=== PATIENT | male | born 1935 | race Caucasian/White ===

== ENCOUNTER 2019-08-02 03:41 | Inpatient (IN) | payer MEDICARE ==
[~2019-08-02] VITALS: Ht 175.3 cm; Wt 83.9 kg
[~2019-08-02 03:41] MED LIST: **INCOMPLETE MED REC; ASPI81CH PO; BREO ELLIPTA 11 EACH INH; DOCU100 PO; GENPREOPSU; HYDACE10B PO; LISI5 PO; METO50 PO; NAPR500 PO; PRED FORTE5 ML LEFTEYE; Simvastatin20 MG PO; TIOT18 INH; Tylenol325 MG PO; VITAMIN B-125000 MC2 PO; VITAMIN C500 MG PO; VITAMIN D35000 UNIT PO; WARF5 PO; [UNRECOGNIZED DRUG - OTHER]
[2019-08-02 04:28] LABS: BASOPHILS ABSOLUTE AUTO 0.05 K/mm3 (0.00-0.23); BASOPHILS PERCENT AUTO 1 % (0-2); EOSINOPHILS ABSOLUTE AUTO 0.06 K/mm3 (0.00-0.68); EOSINOPHILS PERCENT AUTO 2 % (0-6); Hematocrit 40.1 % (37.0-53.0); Hemoglobin 13.3 g/dL (13.5-17.5); IMMATURE GRAN ABSOLUTE AUTO 0.01 K/mm3 (0.00-0.10); IMMATURE GRAN PERCENT AUTO 0 % (0-1); LYMPHOCYTES ABSOLUTE AUTO 0.38 K/mm3 (0.84-5.20); LYMPHOCYTES PERCENT AUTO 9 % (21-46); MONOCYTES ABSOLUTE AUTO 0.61 K/mm3 (0.16-1.47); MONOCYTES PERCENT AUTO 15 % (4-13); Mean Corpuscular HGB 31.7 pg (26.0-34.0); Mean Corpuscular HGB Conc 33.2 g/dL (31.5-36.5); Mean Corpuscular Volume 96 fL (80-100); Mean Platelet Volume 9.8 fL (9.1-12.4); NEUTROPHILS ABSOLUTE AUTO 2.97 K/mm3 (1.96-9.15); NEUTROPHILS PERCENT AUTO 73 % (41-73); Platelet Count 193 K/mm3 (150-400); RDW Coefficient Variation 14.4 % (11.7-14.2); RDW Standard Deviation 50.4 fL (35.1-46.3); Red Blood Cell Count 4.19 M/mm3 (4.30-5.90); White Blood Cell Count 4.08 K/mm3 (4.00-11.30)
[2019-08-02 04:43] LABS: International Normalized Ratio 2.45; Prothrombin Time Results 23.9 Sec (9.7-11.5)
[2019-08-02 04:50] LABS: Alanine Aminotransfer (ALT/SGP 26 U/L (12-78); Albumin, Blood 3.4 g/dL (3.4-5.0); Albumin/Globulin Ratio 0.8 (0.8-1.8); Alk Phos 88 U/L (50-136); Anion Gap 7 mmol/L (6-16); Aspartate Aminotrans (AST/SGOT 28 U/L (12-37); Bilirubin, Total 1.1 mg/dL (0.1-1.0); Blood Urea Nitrogen 13 mg/dL (8-24); Bun/Creatinine Ratio 17.7 (12.0-20.0); CO2, Blood 28 mmol/L (21-32); Calcium, Blood 8.9 mg/dL (8.5-10.1); Chloride, Blood 100 mmol/L (98-108); Creatinine, Blood 0.73 mg/dL (0.60-1.20); Globulin, Blood 4.3 g/dL (2.2-4.0); Glomerular Filtration Rate >60 (60-); Glucose, Blood 85 mg/dL (70-99); Magnesium, Blood 1.9 mg/dL (1.6-2.4); Potassium, Blood 3.7 mmol/L (3.5-5.5); Sodium, Blood 135 mmol/L (136-145); Total Protein, Blood 7.7 g/dL (6.4-8.2); Troponin I <0.015 ng/mL (0.000-0.040)
[2019-08-02 06:40] LABS: Source, Urine Clean Catch
[2019-08-02 06:42] LABS: Bilirubin, Urine Neg (Neg); Blood, Urine Neg (Neg); Glucose Qualitative, Urine Neg (Neg); Ketones, Urine Neg (Neg); Leukocyte Esterase, Urine Neg (Neg); Nitrite, Urine Neg (Neg); Protein, Urine Neg (Neg); Urobilinogen, Urine 1+ (Normal)
[2019-08-02 06:52] LABS: Appearance, Urine Clear (Clear); Color, Urine Yellow (P-Yellow)
--- NOTE | 2019-08-02 11:36 | NUR ---
PARTIAL ECHO COMPLETE
[2019-08-02] MEDS ORDERED: FURO20 PO (12:22)
--- NOTE | 2019-08-02 17:28 | NUR ---
SUMMARY PT ADMITTED FROM THE ER, ABLE TO STAND AND TRANSFER FROM THE GURNEY TO THE BED, PT SOB WITH ANY ACTIVITY, PT ALERT AND ORIENTED, PLEASANT AND COOPERATIVE, ORIENTED PT TO THE ROOM AND CALL SYSTEM, PT WAS ABLE TO WORK WITH PT/OT UP IN THE HALLS TODAY, PT DYSPNEIC BUT RECOVERS QUICKLY, FAMILY AT THE BEDSIDE FOR MOST OF THE DAY, PT MED PER EMAR FOR HTN, WILL CONT TO MONITOR
--- NOTE | 2019-08-02 22:21 | NUR ---
Home medications. Pt brought all his home meds in from home out in pill box and unable to identify what they are. Pt states his insurance will bill him for all hospital meds he is given so wants to use his own. Pt took his own home meds before I realized this was what he was doing so I have no way of verifying what he actually took. Pt instructed to have his bring in his medications in the morning so we can verify his meds. Pt was not happy with this but did call his with these instructions.
--- NOTE | 2019-08-03 04:09 | NUR ---
shift summary; Pt slept most of shift. No c/o discomfort or respiratory distress. Pt on telemetry - AFIB 85 per telesales professional. See previous note about medications. to come in this morning with his home medications. Pt wants to take his own meds. VSS.
[2019-08-03 04:44] LABS: Hemoglobin 13.4 g/dL (13.5-17.5); Mean Corpuscular HGB 32.1 pg (26.0-34.0); Mean Corpuscular HGB Conc 33.5 g/dL (31.5-36.5); Mean Corpuscular Volume 96 fL (80-100); Mean Platelet Volume 9.8 fL (9.1-12.4); Platelet Count 184 K/mm3 (150-400); RDW Coefficient Variation 14.6 % (11.7-14.2); RDW Standard Deviation 51.8 fL (35.1-46.3); Red Blood Cell Count 4.18 M/mm3 (4.30-5.90)
[2019-08-03 05:07] LABS: Anion Gap 7 mmol/L (6-16); Blood Urea Nitrogen 14 mg/dL (8-24); Bun/Creatinine Ratio 16.4 (12.0-20.0); CO2, Blood 31 mmol/L (21-32); Calcium, Blood 8.7 mg/dL (8.5-10.1); Chloride, Blood 100 mmol/L (98-108); Creatinine, Blood 0.85 mg/dL (0.60-1.20); Glomerular Filtration Rate >60 (60-); Glucose, Blood 93 mg/dL (70-99); Potassium, Blood 3.6 mmol/L (3.5-5.5); Sodium, Blood 138 mmol/L (136-145)
[2019-08-03 05:14] LABS: International Normalized Ratio 2.08; Prothrombin Time Results 20.6 Sec (9.7-11.5)
--- NOTE | 2019-08-03 07:05 | NUR ---
ASSUMED CARE OF PT- RECIEVED REPORT FROM NIGHT RN ELTON. PER REPORT PT ALERT AND ORIENTED AND CALLS APPROPRIATELY. PT SLEEPING AT THE TIME OF SHIFT CHANGE. PER REPORT WHEN NIGHT RN WENT TO GIVE EVENING MEDS, PT INFORMED HER HE ALREADY TOOK HIS MEDICATIONS. PT MEDS WERE SET UP IN A PILL COMMUNITY RECREATION PROGRAMMER BY HIS SPOUSE, NO PERSCRIPTION BOTTLES. MED COMMUNITY RECREATION PROGRAMMER PLACED IN THE LOCKED DRAWER. PT DECLINING TO BE GIVEN MEDICATIONS HERE AT THE HOSPITAL, STATES HE WILL TAKE ALL OF HIS OWN MEDS. SPOUSE IS TO BRING IN THE PILL BOTTLES FOR VERIFICATION. PT ADMITTED FOR SOB WITH DIMMINISHED LOWER LOBE SOUNDS, PT DID CONSENT TO RECIEVE IV LASIX. NIGHT RN.
--- NOTE | 2019-08-03 11:24 | NUR ---
BARIATRIC PHYSICIAN- PT SITTING AT EOB TALKING TO FAMILY. PER FAMILY STATEMENT HE TIPPED OVER AND STOPPED TALKING AND WOULDN'T ANSWER THEM. PT SPOUSE BECAME CONCERNED AND CALLED CHIEF SERVICE DISPATCHER TO ASSIST. CHIEF SERVICE DISPATCHER FABI CALLED SUPERVISOR BEATER ROOM CASSIE AND PT VITALS WERE BEGAN. PRIMARY RN ENTERED, PT LAYING IN BED HOB ELEVATED BREATHING IRRADIC, PT UNRESPONSIVE, EYES OPEN. VITALS 67/48 PULSE AFIB IN THE 70'S PER TELE, CALLED BARIATRIC PHYSICIAN. PULLED NS ON OVERRIDE TO START FLUID BOLUS, DR MARCUS ORDERED 500ML BOLUS. HOB LAID FLAT AND FEET ELEVATED. PT PLACED ON 2L O2 NC. AFTER 150ML OF BOLUS PT SEEMED TO WAKE. PT WAS ORDERED IN HOUSE TRANSFER TO ICU FOR COLSER MONITORING WITH THE PT FLUID BALANCE.
--- NOTE | 2019-08-03 12:31 | NUR ---
PT TRANSFERRED: PT TRANSFERRED TO ROOM ICU 6 AFTER RAPID RESPONSE. ICU ESCALATOR MECHANIC STATES PT'S BP WAS DECREASED. FLUID BOLUS OF 500MLS STARTED DURING RAPID. PT IN UNIT NOW WITH BOLUS COMPLETE, SL. AFIB IN 70S. PT DENIES DIZZINESS OR DISCOMFORT AT THIS TIME WHILE LAYING IN BED. FAMILY AT BEDSIDE. VSS
--- NOTE | 2019-08-03 15:22 | NUR ---
CALL TO DR MARCUS BECAUSE PT WAS BECOMING HYPOTENSIVE AGAIN. DR MARCUS SUGGESTED TO INFORM CARDIOLOGY. CALL TO DR WORLEY WITH ORDERS RECIEVED TO GIVE REMAINING 500ML BOLUS AND CHANGES TO COREG DOSING.
--- NOTE | 2019-08-03 17:30 | NUR ---
SHIFT SUMMARY: PT SITTING UPRIGHT IN BED ON ROOM AIR, LUNG SOUNDS DIMINISHED IN BASES BP ELEVATED AFTER SECOND BOLUS. FAMILY AT BEDSIDE MAJORITY OF SHIFT. NO ACUTE NEEDS OR CONCERNS
--- NOTE | 2019-08-03 19:10 | NUR ---
ASSUME CARE; REPORT RECIEVED FROM OFFGOING MARCY MATTHEWS. MONITOR INTACT SHOWING A FIB. HEART RATE 60'S-70'S. DENIES DISCOMFORT. LUNG SOUNDS CLEAR. RESPIRATIONS REGULAR AND EASY AT REST ON ROOM AIR. SPO2 ABOVE 93%. ABDOMEN SOFT WITH BOWEL SOUNDS FOUR QUADS. SKIN WARM DRY INTACT. VISITS WITH FAMILY AT BEDSIDE CONTINUE TO MONITOR AND REPORT CHANGE IN PATIENT CONDITION EDEMA NOTED TO LOWER EXTREMITIES WHICH ARE ELEVATED ON PILLOWS. VISITS WITH FAMILY AT BEDSIDE. CONTINUE TO MONITOR AND REPORT CHANGE IN PATEIENT CONDITION.
--- NOTE | 2019-08-04 00:25 | NUR ---
ADMIT NOTE ADMIT 43 YO FEMALE TO ICU [address] [employer] [employer] PER AMY VIA ER. MONITOR PLACED SHOWING SINUS RHYTHM HEART RATE 80'S-90'S. SLEEPING, VERY LETHARGIC. AROUSES TO VERBAL STIMULI. FOLLOWS DIRECTIONS, HOWEVER RETURNS TO SLEEP IMMEDIATLY. LUNG SOUNDS CLEAR. SNORES WHEN SLEEPING . SPO2 95-97% ABDOMEN SOFT WITH BOWEL SOUNDS FOUR QUADS. RED PATCHY, SCALEY,. DRY AREAS TO ARMS AND LEGS STATES " THEY DRIED UP A FEW DAYS AGO" SCATTERED BRUISES TO LEGS NOTED. NANCE WELL. ASSISTS IN REPOSITIONING. UNABLE TO STAY AWAKE ALERT ENOUGH TO COMPLETE BLOOD CONSENT OR RELEASE OF MEDICAL INFORMATION. UNABLLE TO ANSWER QUESTIONS TO COMPLET ASSESSMENT SCREENING. CALM, SLEEPING WHEN UNDISTURBED.CIWA 4 OR LESS.. CONTINUE TO MONITOR AND REPORT CHANGE IN PATIENT CONDITION.
[2019-08-04 03:32] LABS: International Normalized Ratio 2.04; Prothrombin Time Results 20.3 Sec (9.7-11.5)
--- NOTE | 2019-08-04 06:35 | NUR ---
SHIFT SUMMARY: RESTS QUIETLY WHEN UNDISTURBED. MONITOR INTACT SHOWING A FIB .. HEART RATE 60'S-80'S. LUNGS CLEAR.. RESPIRATIONS REGULAR AND EASY. O2 PLACED SECONDARY TO SPO2 84-86 DURING SLEEP.ABODMEN SOFT WITH BOWEL SOUNDS FOUR QUADS. VOIDS KANCHAN URINE PER URINAL. FAMILY REMAINED IN ROOM DURING NOC. ATTENTIVE TO NEEDS CARES. CONTINUE TO MONITOR AND REPORT CHANGE IN PATIENT CONDITION.NANCE WELL IN BED
--- NOTE | 2019-08-04 07:20 | NUR ---
ASSUMED CARE: PT SITTING UPRIGHT IN BED. AWAKE AND TALKING WITH STAFF. FAMILY SITTING AT BEDSIDE. NO ACUTE NEEDS OR CONCERNS AT THIS TIME.
--- NOTE | 2019-08-04 11:19 | NUR ---
eCHOCARDIOGRAM PERFORMED.
--- NOTE | 2019-08-04 11:48 | NUR ---
PT TRANSFERRED TO PCU 6. AT BEDSIDE AND AWARE OF TRANSFER. REPORT CALLED TO MARCY BASILIO. PT WAS TRANSFERRED SLOWLY TO WHEEL CHAIR AND DENIED DIZZINESS OR SPOTS. NO FURTHER NEEDS OR CONCERNS.
--- NOTE | 2019-08-04 12:50 | NUR ---
PT ARRIVED TO THE ROOM AT APPROXIMATELY 1145. PT ALERT AND ORIENTED AT TIME OF ARRIVAL TO THE ROOM. PT REPORTS HIS SHORTNESS OF BREATH IS AT BASELINE. VSS. WILL CONTINUE TO MONITOR.
--- NOTE | 2019-08-04 17:11 | NUR ---
AFTERNOON ASSESSMENT NO CHANGES TO REPORT SINCE NOON ASSESSMENT. PT CONTINUES TO COMPLAIN OF MILD SHORTNESS OF BREATH. VSS. WILL MONITOR UNTIL REPORT TO ONCOMING RN.
--- NOTE | 2019-08-04 19:32 | NUR ---
SHIFT SUMMARY PT HAS BEEN ALERT AND ORIENTED SINCE ARRIVAL FROM ICU. PT REPORTS SHORTNESS OF BREATH AT REST WHICH INCREASES WITH ACTIVITY; PT REPORTS THIS IS HIS BASELINE. PT IS A 1 PERSON ASSIST WHEN OOB. VSS. REPORT GIVEN TO JACKY VIDAL.
[2019-08-05 03:55] LABS: Hematocrit 36.9 % (37.0-53.0); Hemoglobin 12.1 g/dL (13.5-17.5); Mean Corpuscular HGB 32.5 pg (26.0-34.0); Mean Corpuscular HGB Conc 32.8 g/dL (31.5-36.5); Platelet Count 166 K/mm3 (150-400); RDW Coefficient Variation 14.3 % (11.7-14.2); RDW Standard Deviation 52.6 fL (35.1-46.3); Red Blood Cell Count 3.72 M/mm3 (4.30-5.90); White Blood Cell Count 3.36 K/mm3 (4.00-11.30)
[2019-08-05 03:56] LABS: Mean Corpuscular Volume 99 fL (80-100)
[2019-08-05 04:08] LABS: International Normalized Ratio 1.94; Prothrombin Time Results 19.4 Sec (9.7-11.5)
[2019-08-05 04:18] LABS: Anion Gap 5 mmol/L (6-16); Blood Urea Nitrogen 18 mg/dL (8-24); Bun/Creatinine Ratio 23.1 (12.0-20.0); CO2, Blood 29 mmol/L (21-32); Calcium, Blood 8.6 mg/dL (8.5-10.1); Chloride, Blood 102 mmol/L (98-108); Creatinine, Blood 0.78 mg/dL (0.60-1.20); Glomerular Filtration Rate >60 (60-); Glucose, Blood 88 mg/dL (70-99); Sodium, Blood 136 mmol/L (136-145)
--- NOTE | 2019-08-05 05:49 | NUR ---
SHIFT SUMMARY PT HAS REMAINED AOX4 THROUGHOUT SHIFT. VSS. PLEASANT AND COOPERATIVE WITH CARE. O2 SATS HAVE REMAINED >92% THROUGHOUT THE NIGHT ON RA. PT REPORTS MINIMAL DYSPNEA WITH ACTIVITY THROUGHOUT THE NIGHT, BUT NOT AT REST. CONTINUES TO USE URINAL AT BEDSIDE INDEPENDENTLY. PT HAS BEEN NPO SINCE MIDNIGHT IN ANTICIPATION FOR PROCEDURE THIS AM. NO OTHER CHANGES NOTED FROM INITIAL ASSESSMENT. WILL CONTINUE TO MONITOR AND REPORT TO ONCOMING SHIFT RN. BED IN LOW POSITION, CALL LIGHT IN REACH. FAMILY AT BEDSIDE.
--- NOTE | 2019-08-05 09:39 | NUR ---
PCU DAYSHIFT ASSUMED CARE OF PT APPROX. 0700. PT A&OX4. ASSESSMENT COMPLETED. VITAL SIGNS STABLE. PT HAS BEEN NPO SINCE MIDNIGHT FOR PROCEDURE TODAY. PT REPORTS BREATHING FEELS BETTER THAN IT HAS PREVIOUS DAYS. FAMILY AT BEDSIDE THIS MORNING. CONTACTED HEART CENTER TO CLARIFY THAT PT ON LIST FOR PROCEDURE TODAY. HEART CENTER STAFF REPORTS PT TO HAVE PROCEDURE THIS AFTERNOON. BED IN LOW POSITION, CALL LIGHT IN REACH AND PT DENIES ANY NEEDS.
--- NOTE | 2019-08-05 17:42 | NUR ---
SHIFT SUMMARY PT PLEASANT, COOPERATIVE AND USES CALL LIGHT APPROPRIATELY. PT REMAINS A&OX4. VITAL SIGNS REMAIN STABLE. ASSESSMENT FINDINGS REMAIN UNCHANGED SINCE START OF SHIFT. PT ABLE TO PARTICIPATE WITH PHYSICAL THERAPY TODAY. PROCEDURE CHANGED TO TOMORROW FROM TODAY. PT TO BE NPO TONIGHT AT MIDNIGHT FOR PROCEDURE TOMORROW. FAMILY AT BEDSIDE INTERMITTENTLY TODAY. BED IN LOW POSITION, CALL LIGHT IN REACH AND PT DENIES ANY NEEDS. WILL CONTINUE TO MONITOR UNTIL HANDOFF TO NIGHTSHIFT RN
[2019-08-06 04:05] LABS: International Normalized Ratio 1.56; Prothrombin Time Results 15.9 Sec (9.7-11.5)
--- NOTE | 2019-08-06 05:19 | NUR ---
SHIFT SUMMARY: PATIENT UPSET THIS SHIFT THAT HIS NIGHT MEDICATIONS WERE ADMINISTERED AFTER 2100. PATIENT SLEPT WELL OTHERWISE. INR THIS AM IS 1.56 AND PT IS 15.9, PATIENT NPO SINCE MIDNIGHT. VSS, CALL LIGHT WITHIN REACH WITH BED LOW AND LOCKED.
--- NOTE | 2019-08-06 09:20 | NUR ---
PCU DAYSHIFT ASSUMED CARE OF PT APPROX. 0700. PT A&OX4. VITAL SIGNS STABLE. ASSESSMENT COMPLETED. PT REPORTS HAVING A GOOD NIGHT AND STATES HE IS READY TO GET THIS PROCEDURE DONE. CALLED AND NOTIFIED CHARTER COORDINATOR OF INR LEVEL THIS MORNING. CARDIOLIGIST IN TO SEE PT THIS MORNING AND STATES THE PLAN IS TO COMPLETE THE PROCEDURE THIS AFTERNOON. FAMILY AT BEDSIDE AND NOTIFIED OF THIS ALSO. BED IN LOW POSITION, CALL LIGHT IN REACH AND PT DENIES ANY NEEDS WILL CONTINUE TO MONITOR
--- NOTE | 2019-08-06 14:38 | NUR ---
NOTE HEART CENTER STAFF ESCORTED PT TO HEART CENTER FOR PROCEDURE
--- NOTE | 2019-08-06 15:54 | NUR ---
BACK TO UNIT PT ARRIVED BACK TO UNIT APPROX. 1548. HEART CENTER NOTIFIED ME THAT THEY DID NOT COMPLETE PROCEDURE. THEY USED ULTRA SOUND BUT DID NOT MAKE ANY INCISIONS. NOTED THAT PT SKIN REMAINS C,D,I. NO INCISION NOTED. PT VITAL SIGNS STABLE UPON RETURN. PT REPORTS BEING HUNGRY. A SNACK WAS PROVIDED TO PT
[2019-08-06] MEDS ORDERED: ASPI81CH PO (17:46)
[2019-08-06] MEDS ORDERED: CARV6.25 PO (17:47)
[2019-08-06] MEDS ORDERED: LISI5 PO (17:47)
--- NOTE | 2019-08-06 17:49 | NUR ---
SHIFT SUMMARY PT PLEASANT, COOPERATIVE AND USES CALL LIGHT APPROPRAITELY. PT REMAINS A&OX4. VITAL SIGNS REMAIN STABLE. ASSESSMENT FINDINGS REMAIN UNCHANGED. PMD AND CADIOLOGIST IN TO SEE PT THIS EVENING. BOTH OKAYED PT TO DISCHARGE HOME THIS EVENING. DISCHARGE PAPERS RECIEVED. DISCHARGE PROCESS BEING COMPLETED AT THIS TIME BY ERECTOR OPERATOR. MEDICATIONS WILL BE CALLED TO PREFERED PHARMACY. PT AT BEDSIDE TO TAKE PT HOME. WILL REMOVED IV'S AND CONTINUE TO MONITOR PT UNTIL. DISCHARGE INTRUSTIONS COMPLETED AND REVIEWED WITH PT. PT TO BE ESCORTED BY PEER STAFF MEMBER VIA WHEELCHAIR TO AUTOMOBILE. BED IN LOW POSITION, CALL LIGHT IN REACH AND PT DENIES ANY NEEDS. WILL CONTINUE TO MONITOR.
[2019-08-07 11:27] LABS: Antinuclear Antibody Screen Positive (Negative)
[2019-08-10 11:04] LABS: ANA Pattern Speckled
== END 2019-08-06 18:15 | disposition home or self-care (01) | DRG 314 ==
LOC: ER 03:41 → ICUE 03:42 → MEDS 03:42 → ICUE 03:42 → ERHOLD 03:42 → MEDS 10:42 → ICUE 08-03 12:16 → PCU 08-04 11:47
PROVIDERS: Emergency Medicine; Internal Medicine; Internal Medicine Cardiovascular Disease; ADMIT Family Medicine
DX: I31.3 Pericardial effusion (noninflammatory) (principal); I50.33 Acute on chronic diastolic (congestive) heart failure; I69.354 Hemiplegia and hemiparesis following cerebral infarction affecting left non-dominant side; E87.1 Hypo-osmolality and hyponatremia; Z79.01 Long term (current) use of anticoagulants; Z79.82 Long term (current) use of aspirin; J44.9 Chronic obstructive pulmonary disease, unspecified; I48.91 Unspecified atrial fibrillation; M19.90 Unspecified osteoarthritis, unspecified site; Z87.891 Personal history of nicotine dependence; Z94.5 Skin transplant status; H54.40 Blindness, one eye, unspecified eye; I77.9 Disorder of arteries and arterioles, unspecified; I11.0 Hypertensive heart disease with heart failure; F10.10 Alcohol abuse, uncomplicated
CPT/HCPCS: 33010; 36415; 71046; 76937; 80048; 80053; 81003; 83735; 83880; 84443; 84484; 85025; 85027; 85610; 86038; 86039; 86430; 93005; 93010; 93308; 93321; 94640; 94760; 96374; 96375; 96376; 97110; 97116; 97162; 97166; 97530; 97535; 99152; 99153; 99285-25; G0378; J0360; J1644; J1940; J2250; J3010; J7030; J7040

== ENCOUNTER 2020-03-31 15:26 | Inpatient (IN) | payer MEDICARE ==
[~2020-03-31] VITALS: Ht 182.9 cm; Wt 82.0 kg
[~2020-03-31 15:26] MED LIST changes: +Aspirin EC81 MG PO; +Coreg12.5 MG PO; +FURO20 PO; +VITAMIN D31000 UNI1 PO; -VITAMIN D35000 UNIT PO
[2020-03-31 15:59] LABS: BASOPHILS ABSOLUTE AUTO 0.03 K/mm3 (0.00-0.23); BASOPHILS PERCENT AUTO 1 % (0-2); EOSINOPHILS ABSOLUTE AUTO 0.02 K/mm3 (0.00-0.68); EOSINOPHILS PERCENT AUTO 1 % (0-6); Hematocrit 39.8 % (37.0-53.0); Hemoglobin 13.2 g/dL (13.5-17.5); IMMATURE GRAN ABSOLUTE AUTO 0.01 K/mm3 (0.00-0.10); IMMATURE GRAN PERCENT AUTO 0 % (0-1); LYMPHOCYTES ABSOLUTE AUTO 0.38 K/mm3 (0.84-5.20); LYMPHOCYTES PERCENT AUTO 10 % (21-46); MONOCYTES ABSOLUTE AUTO 0.53 K/mm3 (0.16-1.47); MONOCYTES PERCENT AUTO 14 % (4-13); Mean Corpuscular HGB 31.8 pg (26.0-34.0); Mean Corpuscular HGB Conc 33.2 g/dL (31.5-36.5); Mean Corpuscular Volume 96 fL (80-100); NEUTROPHILS ABSOLUTE AUTO 2.93 K/mm3 (1.96-9.15); NEUTROPHILS PERCENT AUTO 75 % (41-73); Platelet Count 184 K/mm3 (150-400); RDW Coefficient Variation 13.9 % (11.7-14.2); RDW Standard Deviation 49.5 fL (35.1-46.3); Red Blood Cell Count 4.15 M/mm3 (4.30-5.90)
[2020-03-31 16:21] LABS: Alanine Aminotransfer (ALT/SGP 15 U/L (12-78); Albumin, Blood 3.2 g/dL (3.4-5.0); Albumin/Globulin Ratio 0.7 (0.8-1.8); Alk Phos 82 U/L (50-136); Anion Gap 6 mmol/L (6-16); Aspartate Aminotrans (AST/SGOT 24 U/L (12-37); Bilirubin, Total 1.4 mg/dL (0.1-1.0); Blood Urea Nitrogen 12 mg/dL (8-24); Bun/Creatinine Ratio 16.7 (12.0-20.0); CO2, Blood 28 mmol/L (21-32); Calcium, Blood 8.6 mg/dL (8.5-10.1); Chloride, Blood 96 mmol/L (98-108); Creatinine, Blood 0.72 mg/dL (0.60-1.20); Globulin, Blood 4.5 g/dL (2.2-4.0); Glomerular Filtration Rate >60 (60-); Glucose, Blood 80 mg/dL (70-99); Potassium, Blood 3.9 mmol/L (3.5-5.5); Sodium, Blood 130 mmol/L (136-145); Total Protein, Blood 7.7 g/dL (6.4-8.2); Troponin I <0.015 ng/mL (0.000-0.040)
[2020-03-31] MEDS ORDERED: Simvastatin40 MG PO (18:36)
[2020-04-01 00:14] LABS: CPK Creatine Kinase 96 U/L (39-308); Troponin I <0.015 ng/mL (0.000-0.040)
[2020-04-01 00:32] LABS: International Normalized Ratio 1.78; Prothrombin Time Results 18.4 Sec (9.7-11.5)
[2020-04-01 08:39] LABS: Hematocrit 38.9 % (37.0-53.0); Hemoglobin 12.7 g/dL (13.5-17.5); Mean Corpuscular HGB 31.6 pg (26.0-34.0); Mean Corpuscular HGB Conc 32.6 g/dL (31.5-36.5); Mean Corpuscular Volume 97 fL (80-100); Mean Platelet Volume 9.8 fL (9.1-12.4); Platelet Count 178 K/mm3 (150-400); RDW Coefficient Variation 13.8 % (11.7-14.2); RDW Standard Deviation 49.7 fL (35.1-46.3); Red Blood Cell Count 4.02 M/mm3 (4.30-5.90); White Blood Cell Count 4.17 K/mm3 (4.00-11.30)
[2020-04-01 08:43] LABS: Alanine Aminotransfer (ALT/SGP 19 U/L (12-78); Albumin, Blood 2.9 g/dL (3.4-5.0); Albumin/Globulin Ratio 0.7 (0.8-1.8); Alk Phos 76 U/L (50-136); Anion Gap 7 mmol/L (6-16); Aspartate Aminotrans (AST/SGOT 23 U/L (12-37); Bilirubin, Total 1.6 mg/dL (0.1-1.0); Blood Urea Nitrogen 13 mg/dL (8-24); Bun/Creatinine Ratio 16.6 (12.0-20.0); CO2, Blood 31 mmol/L (21-32); CPK Creatine Kinase 103 U/L (39-308); Calcium, Blood 8.6 mg/dL (8.5-10.1); Chloride, Blood 96 mmol/L (98-108); Creatinine, Blood 0.78 mg/dL (0.60-1.20); Globulin, Blood 4.3 g/dL (2.2-4.0); Glomerular Filtration Rate >60 (60-); Glucose, Blood 73 mg/dL (70-99); Potassium, Blood 4.1 mmol/L (3.5-5.5); Sodium, Blood 134 mmol/L (136-145); Total Protein, Blood 7.2 g/dL (6.4-8.2); Troponin I 0.051 ng/mL (0.000-0.040)
[2020-04-02 05:30] LABS: Anion Gap 6 mmol/L (6-16); Blood Urea Nitrogen 20 mg/dL (8-24); Bun/Creatinine Ratio 22.1 (12.0-20.0); CO2, Blood 34 mmol/L (21-32); Calcium, Blood 8.8 mg/dL (8.5-10.1); Chloride, Blood 96 mmol/L (98-108); Creatinine, Blood 0.91 mg/dL (0.60-1.20); Glomerular Filtration Rate >60 (60-); Glucose, Blood 82 mg/dL (70-99); Potassium, Blood 3.8 mmol/L (3.5-5.5); Sodium, Blood 136 mmol/L (136-145)
[2020-04-02 05:31] LABS: International Normalized Ratio 2.11; Prothrombin Time Results 21.6 Sec (9.7-11.5)
[2020-04-03 05:26] LABS: International Normalized Ratio 1.9; Prothrombin Time Results 19.6 Sec (9.7-11.5)
[2020-04-03 05:32] LABS: Anion Gap 7 mmol/L (6-16); Blood Urea Nitrogen 19 mg/dL (8-24); Bun/Creatinine Ratio 23.7 (12.0-20.0); CO2, Blood 31 mmol/L (21-32); Calcium, Blood 8.7 mg/dL (8.5-10.1); Chloride, Blood 96 mmol/L (98-108); Glomerular Filtration Rate >60 (60-); Glucose, Blood 88 mg/dL (70-99); Potassium, Blood 3.7 mmol/L (3.5-5.5); Sodium, Blood 134 mmol/L (136-145)
[2020-04-03] MEDS ORDERED: TORSE20 PO (11:31)
== END 2020-04-03 12:15 | disposition home health service (06) | DRG 291 ==
LOC: ER 15:26 → MEDS 20:28 → ENPENDDIS 04-03 11:00 → MEDS 04-03 12:15
PROVIDERS: Hospitalist; Physician Assistant; ADMIT Internal Medicine
DX: I11.0 Hypertensive heart disease with heart failure (principal); J96.01 Acute respiratory failure with hypoxia; I48.21 Permanent atrial fibrillation; I31.3 Pericardial effusion (noninflammatory); I24.8 Other forms of acute ischemic heart disease; I50.33 Acute on chronic diastolic (congestive) heart failure; J44.9 Chronic obstructive pulmonary disease, unspecified; H54.62 Unqualified visual loss, left eye, normal vision right eye; I69.398 Other sequelae of cerebral infarction; R20.2 Paresthesia of skin; I25.10 Atherosclerotic heart disease of native coronary artery without angina pectoris; F10.20 Alcohol dependence, uncomplicated; Z88.2 Allergy status to sulfonamides; Z88.0 Allergy status to penicillin; Z85.828 Personal history of other malignant neoplasm of skin; Z79.2 Long term (current) use of antibiotics; Z79.82 Long term (current) use of aspirin; Z79.51 Long term (current) use of inhaled steroids; Z79.899 Other long term (current) drug therapy
CPT/HCPCS: 36415; 71045; 80048; 80053; 82550; 83880; 84145; 84484; 85025; 85027; 85610; 93005; 93010; 93308; 93321; 94640; 94760; 96374; 97116; 97162; 99285-25; J0360; J1650; J1940

== ENCOUNTER 2021-05-20 07:06 | Inpatient (IN) | payer MEDICARE ==
[~2021-05-20] VITALS: Ht 182.9 cm; Wt 80.3 kg
[~2021-05-20 07:06] MED LIST changes: +BREO ELLIPTA 11 EAC1 INH; -BREO ELLIPTA 11 EACH INH; +CARV25 PO; -Coreg12.5 MG PO; +Simvastatin40 MG PO; +TORSE20 PO
[2021-05-20 07:30] LABS: BASOPHILS ABSOLUTE AUTO 0.05 K/mm3 (0.00-0.23); BASOPHILS PERCENT AUTO 1 % (0-2); EOSINOPHILS ABSOLUTE AUTO 0.03 K/mm3 (0.00-0.68); EOSINOPHILS PERCENT AUTO 1 % (0-6); Hematocrit 36.9 % (37.0-53.0); Hemoglobin 12.1 g/dL (13.5-17.5); IMMATURE GRAN ABSOLUTE AUTO 0.01 K/mm3 (0.00-0.10); IMMATURE GRAN PERCENT AUTO 0 % (0-1); LYMPHOCYTES PERCENT AUTO 12 % (21-46); MONOCYTES ABSOLUTE AUTO 0.61 K/mm3 (0.16-1.47); MONOCYTES PERCENT AUTO 12 % (4-13); Mean Corpuscular HGB 31.8 pg (26.0-34.0); Mean Corpuscular HGB Conc 32.8 g/dL (31.5-36.5); Mean Corpuscular Volume 97 fL (80-100); Mean Platelet Volume 9.6 fL (9.1-12.4); NEUTROPHILS PERCENT AUTO 74 % (41-73); Platelet Count 206 K/mm3 (150-400); RDW Standard Deviation 49.6 fL (35.1-46.3)
[2021-05-20] MEDS ORDERED: Vitamin B-121000 MCG PO (07:45)
[2021-05-20] MEDS ORDERED: BREO ELLIPTA 11 EAC1 INH (07:46)
[2021-05-20] MEDS ORDERED: C COMPLEX1000 M2 PO (07:46)
[2021-05-20] MEDS ORDERED: TIOT18 INH (07:46)
[2021-05-20 07:51] LABS: Alanine Aminotransfer (ALT/SGP 17 U/L (12-78); Albumin, Blood 3.2 g/dL (3.4-5.0); Albumin/Globulin Ratio 0.7 (0.8-1.8); Alk Phos 71 U/L (50-136); Anion Gap 5 mmol/L (6-16); Aspartate Aminotrans (AST/SGOT 21 U/L (12-37); Blood Urea Nitrogen 14 mg/dL (8-24); Bun/Creatinine Ratio 18.2 (12.0-20.0); CO2, Blood 26 mmol/L (21-32); Calcium, Blood 8.8 mg/dL (8.5-10.1); Chloride, Blood 100 mmol/L (98-108); Creatinine, Blood 0.77 mg/dL (0.60-1.20); Globulin, Blood 4.9 g/dL (2.2-4.0); Glomerular Filtration Rate >60 (60-); Glucose, Blood 83 mg/dL (70-99); Potassium, Blood 4.5 mmol/L (3.5-5.5); Sodium, Blood 131 mmol/L (136-145); Total Protein, Blood 8.1 g/dL (6.4-8.2); Troponin I <0.015 ng/mL (0.000-0.040)
[2021-05-20 08:36] LABS: International Normalized Ratio 1.9; Prothrombin Time Results 19.8 Sec (9.7-11.5)
--- NOTE | 2021-05-20 13:17 | NUR ---
PT ADMIT TO PCU FROM ER AT 1250. USED SLIDE SHEET TO TRANSFER. ON BIPAP WITH SETTINGS AT 12/6 AND 35% O2. SATING LOW 90'S. CONTINUOUS BIOX IN PLACE. TELE SHOWING AFIB WITH HR AT 85. DENIES CHEST PAIN/PRESSURE. VITAL SIGNS STABLE. DENIES OVERALL PAIN. ABDOMEN SLIGHTLY DISTENTED, PER PATIENT THAT IS HIS NORMAL. SKIN PALE WITH SCATTERED BRUISING AND DRYNESS. USING URINAL IN BED. ABLE TO ANSWER ALL CARE QUESTIONS APPROPRIATELY. AT BEDSIDE. EDUCATED CLINICAL PATHOLOGIST LIGHT SAFETY AND FALL PREVENTION. ORIENTATION TO UNIT. LEFT FOREARM IV IN PLACE SALINE LOCKED AND FLUSHING WELL. USES CANE AT BASELINE, AT THIS TIME BEDREST WITH BRP. BED ALARM ON FOR SAFETY. ECHO BEING DONE AT THIS TIME. WILL CONTINUE TO MONITOR.
--- NOTE | 2021-05-20 13:33 | NUR ---
echocardiogram complete
--- NOTE | 2021-05-20 14:36 | NUR ---
DISCUSSED ALCOHOL CONSUMPTION WITH PATIENT. PATIENT REPORTS HE DRINKS 2 BEERS EVERY DAY. WILL FOLLOW [facility] ASSESSMENT ORDERS.
--- NOTE | 2021-05-20 18:44 | NUR ---
SHIFT SUMMARY: NO ACUTE CHANGES, SEE PREVIOUS NOTE. PT CURRENTLY ON BIPAP RESTING IN BED. ABLE TO TAKE BREAKS AND BE ON 2 L O2 VIA NASAL CANNULA WHILE EATING DINNER, SATING MID 90'S. VERY PLEASENT AND COOPERATIVE WITH CARE. 1 BOWEL MOVEMENT THIS EVENING USING BED QUEZADA. VITAL SIGNS REMAIN STABLE. TELE SHOWING AFIB WITH HR 80-90'S. PT DENIES PAIN/NEEDS AT THIS TIME. WILL REPORT OFF TO ONCOMING RN.
--- NOTE | 2021-05-21 00:29 | NUR ---
PT IS MONITORED VIA TELEMETRY, A-FIB. DENIES CHEST PAIN. ALTERNATING BETWEEN BI-PAP AND NC AT 2LPM. MONITORED FOR CIWA, NO SIGNS OF WITHDRAWAL AT THS TIME. A&O X4. VSS. WILL CONTINUE TO MONITOR.
[2021-05-21 04:15] LABS: International Normalized Ratio 1.98; Prothrombin Time Results 20.6 Sec (9.7-11.5)
[2021-05-21 04:19] LABS: Anion Gap 5 mmol/L (6-16); Blood Urea Nitrogen 26 mg/dL (8-24); Bun/Creatinine Ratio 28.4 (12.0-20.0); CO2, Blood 28 mmol/L (21-32); Calcium, Blood 8.6 mg/dL (8.5-10.1); Chloride, Blood 98 mmol/L (98-108); Creatinine, Blood 0.91 mg/dL (0.60-1.20); Glomerular Filtration Rate >60 (60-); Glucose, Blood 153 mg/dL (70-99); Sodium, Blood 131 mmol/L (136-145)
--- NOTE | 2021-05-21 05:54 | NUR ---
SHIFT SUMMARY PT'S VSS REMAINED STABLE THROUGH OUT SHIFT. HE MAINTAINED SATURATIONS ABOVE 94% ON 2L VIA NC. DENIED CHEST PAIN OR DISCOMFORT. MONITORED THROUGH OUT SHIFT VIA TELEMETRY, A-FIB IN THE 70'S. HE WAS MONITORED FOR CIWAS, NO S/SX OF ALCOHOL WITHDRAWAL. HE IS A& O X4. DNR BAND IN PLACE ON WRIST. ORAL CARE PERFORMED 0000, PT REFUSED 0600. WILL CONTINUE TO MONITOR.
--- NOTE | 2021-05-21 09:21 | NUR ---
PT ALERT AND ORIENTED X4. ON 2 L O2 VIA NASAL CANNULA SATING HIGH 90'S. GOAL TO TITRATE OFF O2. LASIX GIVEN THIS AM. URINATING WELL. USING URINAL. TELE SHOWING AFIB, HR 80'S. DENIES CHEST PAIN/PRESSURE. VITAL SIGNS STABLE. MINIMAL EDEMA IN BLE. BOWEL TONES PRESENT. EATING WELL. DENIES PAINS/NEEDS AT THIS TIME. CALL LIGHT IN REACH. MEDICAL STATUS WITH TELE. WILL REPORT OFF AND TRANSFER PATIENT TO MEDICAL FLOOR.
--- NOTE | 2021-05-21 18:16 | NUR ---
SHIFT SUMMARY PATIENT ALERT AND ORIENTED THIS SHIFT. PATIENT UP FROM THE PCU EARLY THIS SHIFT. PATIENT REMAINS IN BED THROUGHOUT THIS SHIFT. PATIENT USES URINAL INDEPENDENTLY. PATIENT REMAINS ON IV LASIX. PATIENT TITRATED FROM 2L O2 VIA NC TO ROOM AIR WITH SATS MAINTAINING IN THE MID TO HIGH 90S. PATIENT'S SPOUSE IN THE ROOM VISITING FOR MUCH OF THIS SHIFT. PATIENT CURRENTLY SITTING UP IN BED EATING DINNER.
[2021-05-22 05:20] LABS: International Normalized Ratio 2.77; Prothrombin Time Results 28.2 Sec (9.7-11.5)
[2021-05-22 05:32] LABS: Anion Gap 4 mmol/L (6-16); Blood Urea Nitrogen 22 mg/dL (8-24); Bun/Creatinine Ratio 22.1 (12.0-20.0); CO2, Blood 32 mmol/L (21-32); Calcium, Blood 9.1 mg/dL (8.5-10.1); Chloride, Blood 97 mmol/L (98-108); Glomerular Filtration Rate >60 (60-); Glucose, Blood 96 mg/dL (70-99); Magnesium, Blood 1.9 mg/dL (1.6-2.4); Potassium, Blood 3.9 mmol/L (3.5-5.5); Sodium, Blood 133 mmol/L (136-145)
--- NOTE | 2021-05-22 06:46 | NUR ---
SHIFT SUMMARY PT IS AN 86 Y/O MALE, ADMITTED FOR ACUTE HYPOXEMIC RESPIRATORY FAILURE. HE IS A&O X 4, BEDREST. PT IS ON RA, SATTING > 90%. TELE SHOWED AFIB IN THE 80S. VITAL SIGNS STABLE. NO C/O ACUTE PAIN, NAUSEA OR SOB. NO ACUTE CHANGES IN PT CONDITION NOTED. WILL CONTINUE TO MONITOR AND TREAT PER EMAR UNTIL HAND OFF TO DAY SHIFT RN.
--- NOTE | 2021-05-22 13:04 | NUR ---
DISCHARGE SUMMARY PATIENT DISCHARGED TO HOME. PATIENT REMAINS ON ROOM AIR WITHOUT DIFFICULTIES BREATHING THIS SHIFT. PATIENT LUNGSOUNDS CLEAR THIS SHIFT. PATIENT UP WITH SBA AND FWW TO BATHROOM MULTIPLE TIMES THIS SHIFT. PATIENT ALERT AND ORIENTED, COOPERATIVE WITH CARE. PATIENT DENIES PAIN THIS SHIFT. PATIENT'S SPOUSE TO THE ROOM WITH CLOTHING FOR DISCHARGE. PATIENT DRESSED WITH HELP OF SPOUSE. PATIENT AND SPOUSE PRESENT FOR DISCHARGE INSTRUCTIONS, NO QUESTIONS AT THIS TIME. PATIENT TO VEHICLE VIA WHEELCHAIR BY CHEMICAL PROCESSING EQUIPMENT REPAIRER.
== END 2021-05-22 12:40 | disposition home or self-care (01) | DRG 291 ==
LOC: ER 07:06 → ERHOLD 09:22 → PCU 12:49 → MEDS 05-21 10:10 → ENPENDDIS 05-22 11:58 → MEDS 05-22 12:40
PROVIDERS: Emergency Medicine; ADMIT Hospitalist
PROC: 5A09357 Assistance with Respiratory Ventilation, Less than 24 Consecutive Hours, Continuous Positive Airway Pressure (ICD-10-PCS; principal; 2021-05-20)
DX: I11.0 Hypertensive heart disease with heart failure (principal); J96.01 Acute respiratory failure with hypoxia; I48.21 Permanent atrial fibrillation; I16.1 Hypertensive emergency; E87.1 Hypo-osmolality and hyponatremia; I31.3 Pericardial effusion (noninflammatory); I27.20 Pulmonary hypertension, unspecified; D64.9 Anemia, unspecified; I50.33 Acute on chronic diastolic (congestive) heart failure; J44.9 Chronic obstructive pulmonary disease, unspecified; I25.10 Atherosclerotic heart disease of native coronary artery without angina pectoris; Z66 Do not resuscitate; Z90.49 Acquired absence of other specified parts of digestive tract; Z88.2 Allergy status to sulfonamides; Z91.018 Allergy to other foods; Z88.0 Allergy status to penicillin; Z86.73 Personal history of transient ischemic attack (TIA), and cerebral infarction without residual deficits; Z79.01 Long term (current) use of anticoagulants; Z79.51 Long term (current) use of inhaled steroids; Z79.899 Other long term (current) drug therapy; Z85.828 Personal history of other malignant neoplasm of skin; Z98.49 Cataract extraction status, unspecified eye; Z87.891 Personal history of nicotine dependence
CPT/HCPCS: 36415; 71045; 80048; 80053; 83735; 83880; 84484; 85025; 85610; 93005; 93010; 93306; 94640; 94660; 94664; 94760; 94762; 96374; 99285-25; A9270; J1940

== ENCOUNTER 2021-12-30 12:42 | Inpatient (IN) | payer MEDICARE ==
[~2021-12-30] VITALS: Ht 175.3 cm; Wt 80.4 kg
[~2021-12-30 12:42] MED LIST changes: +C COMPLEX1000 M2 PO; +Prinivil10 MG PO; +Vitamin B-121000 MCG PO
[2021-12-30 13:02] LABS: BASOPHILS ABSOLUTE AUTO 0.03 K/mm3 (0.00-0.23); BASOPHILS PERCENT AUTO 1 % (0-2); EOSINOPHILS PERCENT AUTO 0 % (0-6); Hematocrit 40.9 % (37.0-53.0); Hemoglobin 12.9 g/dL (13.5-17.5); IMMATURE GRAN ABSOLUTE AUTO 0.02 K/mm3 (0.00-0.10); IMMATURE GRAN PERCENT AUTO 0 % (0-1); LYMPHOCYTES ABSOLUTE AUTO 0.77 K/mm3 (0.84-5.20); LYMPHOCYTES PERCENT AUTO 13 % (21-46); MONOCYTES ABSOLUTE AUTO 0.58 K/mm3 (0.16-1.47); MONOCYTES PERCENT AUTO 10 % (4-13); Mean Corpuscular HGB 31.9 pg (26.0-34.0); Mean Corpuscular HGB Conc 31.5 g/dL (31.5-36.5); Mean Corpuscular Volume 101 fL (80-100); Mean Platelet Volume 9.9 fL (9.1-12.4); NEUTROPHILS ABSOLUTE AUTO 4.45 K/mm3 (1.96-9.15); NEUTROPHILS PERCENT AUTO 76 % (41-73); Platelet Count 156 K/mm3 (150-400); RDW Coefficient Variation 14.2 % (11.7-14.2); RDW Standard Deviation 52.5 fL (35.1-46.3); Red Blood Cell Count 4.05 M/mm3 (4.30-5.90); White Blood Cell Count 5.85 K/mm3 (4.00-11.30)
[2021-12-30 13:17] LABS: Alanine Aminotransfer (ALT/SGP 14 U/L (12-78); Albumin, Blood 3.2 g/dL (3.4-5.0); Albumin/Globulin Ratio 0.7 (0.8-1.8); Alk Phos 68 U/L (50-136); Anion Gap 5 mmol/L (6-16); Aspartate Aminotrans (AST/SGOT 27 U/L (12-37); Bilirubin, Total 0.8 mg/dL (0.1-1.0); Blood Urea Nitrogen 15 mg/dL (8-24); Bun/Creatinine Ratio 19.7 (12.0-20.0); CO2, Blood 27 mmol/L (21-32); Calcium, Blood 8.5 mg/dL (8.5-10.1); Chloride, Blood 107 mmol/L (98-108); Creatinine, Blood 0.76 mg/dL (0.60-1.20); Globulin, Blood 4.8 g/dL (2.2-4.0); Glomerular Filtration Rate >60 (60-); Glucose, Blood 113 mg/dL (70-99); Potassium, Blood 4.3 mmol/L (3.5-5.5); Sodium, Blood 139 mmol/L (136-145)
[2021-12-30 13:31] LABS: International Normalized Ratio 2.09; Prothrombin Time Results 20.9 Sec (9.7-11.5)
[2021-12-30 13:41] LABS: Influenza A, PCR NEGATIVE (NEGATIVE); Influenza B, PCR NEGATIVE (NEGATIVE); Resp Syncytial Virus, PCR NEGATIVE (NEGATIVE)
[2021-12-30 14:06] LABS: SARS-Cov-2 (COVID-19) PCR, MMC POSITIVE (NEGATIVE)
--- NOTE | 2021-12-30 19:14 | NUR ---
SHIFT SUMMARY PT ARRIVED TO UNIT AT 1700 VIA GURNY AND OCCOMPANIED BY 2 STAFF MEMEBERS. PT ON CPAP SATTING IN 90'S UPON ARRIVAL. PT ABLE TO TRANSFER TO HOSPITAL BED WITH MODERATE ASSISTANCE, PT WEAK ON HIS FEET. NO REPORTS OF CHEST PAIN/PRESSURE SINCE ARRIVL TO UNIT. PT USED URINAL WHILE IN BED, INSTRUCTED TO CALL FOR STAFF IF NEEDING TO HAVE A BM.
[2021-12-31 01:00] LABS: BASOPHILS PERCENT AUTO 0 % (0-2); EOSINOPHILS PERCENT AUTO 0 % (0-6); Hematocrit 35.5 % (37.0-53.0); Hemoglobin 11.5 g/dL (13.5-17.5); IMMATURE GRAN PERCENT AUTO 0 % (0-1); LYMPHOCYTES ABSOLUTE AUTO 0.31 K/mm3 (0.84-5.20); LYMPHOCYTES PERCENT AUTO 11 % (21-46); MONOCYTES ABSOLUTE AUTO 0.14 K/mm3 (0.16-1.47); MONOCYTES PERCENT AUTO 5 % (4-13); Mean Corpuscular HGB 31.9 pg (26.0-34.0); Mean Corpuscular HGB Conc 32.4 g/dL (31.5-36.5); Mean Corpuscular Volume 98 fL (80-100); NEUTROPHILS PERCENT AUTO 85 % (41-73); Platelet Count 136 K/mm3 (150-400); RDW Standard Deviation 50.8 fL (35.1-46.3); Red Blood Cell Count 3.61 M/mm3 (4.30-5.90); White Blood Cell Count 2.95 K/mm3 (4.00-11.30)
[2021-12-31 01:13] LABS: Albumin, Blood 2.6 g/dL (3.4-5.0); Anion Gap 6 mmol/L (6-16); Blood Urea Nitrogen 19 mg/dL (8-24); Bun/Creatinine Ratio 25.5 (12.0-20.0); CO2, Blood 29 mmol/L (21-32); Calcium, Blood 8.2 mg/dL (8.5-10.1); Chloride, Blood 105 mmol/L (98-108); Creatinine, Blood 0.75 mg/dL (0.60-1.20); Glomerular Filtration Rate >60 (60-); Glucose, Blood 159 mg/dL (70-99); Phosphorus, Blood 3.2 mg/dL (2.5-4.9); Potassium, Blood 3.9 mmol/L (3.5-5.5); Sodium, Blood 140 mmol/L (136-145)
[2021-12-31 01:14] LABS: International Normalized Ratio 1.95; Prothrombin Time Results 19.6 Sec (9.7-11.5)
--- NOTE | 2021-12-31 05:36 | NUR ---
SHIFT SUMMARY PATIENT FOUND TO BE A PLESANT MAN WHO IS A&OX4 WITH SOME GENERALIZED WEAKNESS. VSS. CONTROLLED AFIB IN THE 80'S- LOW 100'S. ON CPAP AT START OF SHIFT WITH 4L BLEED IN AND PUT ON 4L O2 TO TAKE MEDS AND A SNACK. SATING 100% ON THIS SO TITRATED DOWN TO HOME DOSE OF 2L NC NOW SATING LOW 90'S. NO PAIN OR DISTRESS. TACHYPENIC IN THE LOW 20'S AT TIMES WITH MOVES IN BED WHICH PATIENT STATES IS NORMAL FOR HIM WITH HIS COPD. DID NOT WANT TO USE CPAP AGAIN UNLESS HE HAD TOO AND HAS MAINTAINED SATS ALL NIGHT. PRODUCTIVE COUGH AT TIMES. COARSE CRACKLES IN LOWER BASES. NOT MUCH OF AN APPETITE BUT DID TRY SOME JELLO WITHOUT ISSUE. VOIDING WELL PER URINAL WITH GOOD OUTPUT. UP WITH ONE ASSIST IN ROOM. FALL PRECAUTIONS IN PLACE AND PATIENT CALLING APPROPRIATELY. NO ACUTE CONCERNS AT THIS TIME. WILL CONTINUE PLAN OF CARE UNTIL REPORT GIVEN TO KIKA RN.
--- NOTE | 2021-12-31 15:17 | NUR ---
SHIFT SUMMARY PT A&O4, VSS/2LNC AT REST, 3LNC W/EXERTION, EDU/ENC TCDB/FLUTTER/I.S.; PT DEMONSTRATED T/O SHIFT. PT IS WEAK/DECONDITIONED, REPOSITIONS SELF WELL IN BED, SAT UP TO CHAIR, AMB MOD ASSIST W/FWW & GB TO BRP. VOIDING WELL/URINAL, BM/BRP. KAREN PO REG DIET, TAKES MEDS WHOLE. WILL REPORT TO ONCOMING NOC RN.
[2022-01-01 04:11] LABS: International Normalized Ratio 2.93; Prothrombin Time Results 28.7 Sec (9.7-11.5)
--- NOTE | 2022-01-01 05:48 | NUR ---
SHIFT SUMMARY PATIENT FOUND TO BE A PLESANT MAN WHO IS A&OX4 WITH SOME GEN WEAKNESS. VSS. CONTROLLED AFIB IN THE 90'S-LOW 100S. WEARING HOME DOSE OF OXYGEN AT 2L SATING HIGH 90'S ALL SHIFT. INS WHEEZE ADAM UPPER LOBES AND COARSE CRACKLES LOWER LOBES. TACHYPENIC AT TIMES IN THE 20'S WHICH PATIENT STATES IS NORMAL WITH HIS COPD. GOOD OUTPUT PER URNIAL. UP WITH ONE ASSIST IN ROOM. FALL PRECAUTIONS IN PLACE AND PATIENT CALLING APPROPRIATELY. WILL CONTINUE PLAN OF CARE UNTIL REPORT GIVEN TO KIKA VIDAL.
[2022-01-01] MEDS ORDERED: ASPI81CH PO (11:56)
[2022-01-01] MEDS ORDERED: GUAI600T33 PO (11:57)
[2022-01-01] MEDS ORDERED: MEDROL PO (12:02)
[2022-01-01] MEDS ORDERED: ONE DAILY MUL400 MCG PO (12:06)
[2022-01-01] MEDS ORDERED: MIRALAX17 GM PO (12:08)
[2022-01-01] MEDS ORDERED: VITAMIN D5000 UNIT PO (12:09)
--- NOTE | 2022-01-01 14:52 | NUR ---
DISCHARGE NOTE PT BELONGINGS AND DISCHARGE INSTRUCTIONS IN PT POSSESSION AT DISCHARGE. PT TRANSPORTED VIA WHEELCHAIR TO PERSONAL VEHICLE. PT STATES NO FURTHER QUESTIONS OR CONCERNS AT THIS TIME.
== END 2022-01-01 14:15 | disposition home or self-care (01) | DRG 871 ==
LOC: ER 12:42 → ERHOLD 14:30 → PCU 17:00
PROVIDERS: Emergency Medicine; ADMIT Internal Medicine
PROC: 8E0ZXY6 Isolation (ICD-10-PCS; principal; 2021-12-30)
PROC: XW033E5 Introduction of Remdesivir Anti-infective into Peripheral Vein, Percutaneous Approach, New Technology Group 5 (ICD-10-PCS; 2021-12-30)
DX: A41.89 Other specified sepsis (principal); U07.1 COVID-19; I50.33 Acute on chronic diastolic (congestive) heart failure; J12.82 Pneumonia due to coronavirus disease 2019; J44.0 Chronic obstructive pulmonary disease with (acute) lower respiratory infection; I48.21 Permanent atrial fibrillation; J44.1 Chronic obstructive pulmonary disease with (acute) exacerbation; Z87.891 Personal history of nicotine dependence; Z88.0 Allergy status to penicillin; Z88.2 Allergy status to sulfonamides; Z88.8 Allergy status to other drugs, medicaments and biological substances; Z91.018 Allergy to other foods; Z66 Do not resuscitate
CPT/HCPCS: 0241U; 36415; 71045; 80053; 80069; 83880; 84145; 84484; 85025; 85610; 93005; 93010; 94640; 94660; 94762; 96374; 96375; 96376; 99285-25; A9270; J0248; J1940; J2930; J7050

== ENCOUNTER 2022-01-05 16:41 | Inpatient (IN) | payer MEDICARE ==
[~2022-01-05] VITALS: Ht 182.9 cm; Wt 77.8 kg
[~2022-01-05 16:41] MED LIST changes: +GUAI600T33 PO; +MEDROL PO; +MIRALAX17 GM PO; +ONE DAILY MUL400 MCG PO; +VITAMIN D5000 UNIT PO
[2022-01-05 17:24] LABS: BASOPHILS PERCENT AUTO 0 % (0-2); EOSINOPHILS ABSOLUTE AUTO 0.02 K/mm3 (0.00-0.68); EOSINOPHILS PERCENT AUTO 0 % (0-6); Hemoglobin 12.8 g/dL (13.5-17.5); IMMATURE GRAN ABSOLUTE AUTO 0.02 K/mm3 (0.00-0.10); IMMATURE GRAN PERCENT AUTO 0 % (0-1); LYMPHOCYTES ABSOLUTE AUTO 0.47 K/mm3 (0.84-5.20); LYMPHOCYTES PERCENT AUTO 5 % (21-46); MONOCYTES ABSOLUTE AUTO 0.64 K/mm3 (0.16-1.47); MONOCYTES PERCENT AUTO 7 % (4-13); Mean Corpuscular HGB 31.6 pg (26.0-34.0); Mean Corpuscular Volume 99 fL (80-100); Mean Platelet Volume 10.6 fL (9.1-12.4); NEUTROPHILS PERCENT AUTO 87 % (41-73); Platelet Count 206 K/mm3 (150-400); RDW Coefficient Variation 13.5 % (11.7-14.2); RDW Standard Deviation 50.2 fL (35.1-46.3); Red Blood Cell Count 4.05 M/mm3 (4.30-5.90); White Blood Cell Count 8.65 K/mm3 (4.00-11.30)
[2022-01-05 17:35] LABS: Alanine Aminotransfer (ALT/SGP 20 U/L (12-78); Albumin, Blood 2.8 g/dL (3.4-5.0); Albumin/Globulin Ratio 0.6 (0.8-1.8); Alk Phos 55 U/L (50-136); Anion Gap 3 mmol/L (6-16); Aspartate Aminotrans (AST/SGOT 22 U/L (12-37); Bilirubin, Total 0.8 mg/dL (0.1-1.0); Blood Urea Nitrogen 19 mg/dL (8-24); Bun/Creatinine Ratio 27.2 (12.0-20.0); CO2, Blood 31 mmol/L (21-32); Calcium, Blood 8.5 mg/dL (8.5-10.1); Chloride, Blood 102 mmol/L (98-108); Globulin, Blood 4.6 g/dL (2.2-4.0); Glomerular Filtration Rate >60 (60-); Glucose, Blood 139 mg/dL (70-99); Potassium, Blood 4.4 mmol/L (3.5-5.5); Sodium, Blood 136 mmol/L (136-145); Total Protein, Blood 7.4 g/dL (6.4-8.2)
[2022-01-05 18:02] LABS: Prothrombin Time Results 50.8 Sec (9.7-11.5)
[2022-01-05 18:08] LABS: International Normalized Ratio 5.4
[2022-01-06 01:47] LABS: BASOPHILS PERCENT AUTO 0 % (0-2); EOSINOPHILS PERCENT AUTO 0 % (0-6); Hematocrit 40.5 % (37.0-53.0); IMMATURE GRAN ABSOLUTE AUTO 0.04 K/mm3 (0.00-0.10); IMMATURE GRAN PERCENT AUTO 1 % (0-1); LYMPHOCYTES ABSOLUTE AUTO 0.21 K/mm3 (0.84-5.20); LYMPHOCYTES PERCENT AUTO 5 % (21-46); MONOCYTES ABSOLUTE AUTO 0.12 K/mm3 (0.16-1.47); MONOCYTES PERCENT AUTO 3 % (4-13); Mean Corpuscular HGB 31.6 pg (26.0-34.0); Mean Corpuscular HGB Conc 32.1 g/dL (31.5-36.5); Mean Corpuscular Volume 98 fL (80-100); Mean Platelet Volume 10.5 fL (9.1-12.4); NEUTROPHILS ABSOLUTE AUTO 4.29 K/mm3 (1.96-9.15); NEUTROPHILS PERCENT AUTO 92 % (41-73); Platelet Count 179 K/mm3 (150-400); RDW Coefficient Variation 13.5 % (11.7-14.2); RDW Standard Deviation 49.3 fL (35.1-46.3); Red Blood Cell Count 4.12 M/mm3 (4.30-5.90); White Blood Cell Count 4.66 K/mm3 (4.00-11.30)
[2022-01-06 01:48] LABS: CPK Creatine Kinase 43 U/L (39-308)
[2022-01-06 01:53] LABS: Alanine Aminotransfer (ALT/SGP 22 U/L (12-78); Albumin, Blood 2.6 g/dL (3.4-5.0); Albumin/Globulin Ratio 0.6 (0.8-1.8); Alk Phos 56 U/L (50-136); Anion Gap 4 mmol/L (6-16); Aspartate Aminotrans (AST/SGOT 24 U/L (12-37); Bilirubin, Total 0.8 mg/dL (0.1-1.0); Blood Urea Nitrogen 20 mg/dL (8-24); Bun/Creatinine Ratio 25.8 (12.0-20.0); CO2, Blood 38 mmol/L (21-32); Calcium, Blood 7.9 mg/dL (8.5-10.1); Chloride, Blood 96 mmol/L (98-108); Creatinine, Blood 0.78 mg/dL (0.60-1.20); Globulin, Blood 4.2 g/dL (2.2-4.0); Glomerular Filtration Rate >60 (60-); Glucose, Blood 128 mg/dL (70-99); International Normalized Ratio 4.37; Potassium, Blood 4.3 mmol/L (3.5-5.5); Prothrombin Time Results 41.7 Sec (9.7-11.5); Sodium, Blood 138 mmol/L (136-145); Total Protein, Blood 6.8 g/dL (6.4-8.2)
--- NOTE | 2022-01-06 06:12 | NUR ---
SHIFT SUMMARY ER ADMIT THIS SHIFT FOR CHF EXACERBATION, A/OX4, NPO SINCE ADMIT, PT REFUSED TO CONTINUE USING BIPAP AROUND 0515, DISCUSSED O2 WITH PATIENT, PLACED PATIENT ON 2L O2 VIA NC IN WHICH PT WAS ABLE TO MAINTAIN O2 SATS > 92%, PT CONTINUES TO BE STABLE USING NC CURRENTLY AT 100%. NO OTHER ACUTE EVENTS THIS SHIFT, CALL LIGHT IN REACH, WILL CTM AND REPORT TO ONCOMING DAY RN.
[2022-01-06 09:43] LABS: CPK Creatine Kinase 41 U/L (39-308)
--- NOTE | 2022-01-06 18:16 | NUR ---
SHIFT SUMMARY: NO ACUTE EVENTS. DENIES PAIN. A&O X 4, COOPERATIVE. TELE SHOWS AFIB 80-90'S. USING O2 @ 2 L/MIN NC, WHICH IS HIS HOME DOSE, WITH SATS > 95%. PRODUCTIVE COUGH BUT UNABLE TO GIVE ADEQUATE SPUTUM SPECIMEN. TACHYPNEIC AT REST, GALVAN. GOT UP TO BR X 1 WITH FWW AND SBA. COMLIANT WITH USING URINAL. IS HOPING TO GO HOME TOMORROW.
[2022-01-07 03:45] LABS: International Normalized Ratio 3.88; Prothrombin Time Results 37.3 Sec (9.7-11.5)
[2022-01-07 04:00] LABS: Anion Gap 5 mmol/L (6-16); Blood Urea Nitrogen 24 mg/dL (8-24); Bun/Creatinine Ratio 29.2 (12.0-20.0); CO2, Blood 37 mmol/L (21-32); Calcium, Blood 8.2 mg/dL (8.5-10.1); Chloride, Blood 96 mmol/L (98-108); Creatinine, Blood 0.82 mg/dL (0.60-1.20); Glomerular Filtration Rate >60 (60-); Glucose, Blood 108 mg/dL (70-99); Potassium, Blood 3.5 mmol/L (3.5-5.5); Sodium, Blood 138 mmol/L (136-145)
--- NOTE | 2022-01-07 06:10 | NUR ---
END OF SHIFT SUMMARY: AOX4, PLEASANT AND COOPERATIVE. ABLE TO MOVE ALL EXT EQUALLY AND SPONTENOUSLY. ON NASAL CANNULA WITH 1.5L OF OXYGENTION. LUNG SOUNDS ARE VERY COARSE AND WITH INT. CRACKLES. HAS A STRONG PRODUCTIVE COUGH BUT UNABLE TO PRODUCE ENOUGH SAMPLE FOR A SPUTUM CULTURE. HAD A RESTFUL EVENING PER PT.
--- NOTE | 2022-01-07 10:37 | NUR ---
I spoke with pts daughter Erica . She said that at home pts spouse has been trying to take care of him on her own, but is sick and not able to help him enough and that is why they think he keeps ending up back in the hospital. Requesting more help at home, maybe home health services. Also requesting other equiptment: wheelchair, nebulizer machine and txs. Dr. Norman was updated of this. Pt will likly d/c in the next few days once we get a safe d/c plan set up. real estate development manager will be here tomorrow to assist with HH orders.
--- NOTE | 2022-01-07 14:23 | NUR ---
Pt reports feeling more SOB and lung sounds do sound worse than this AM, sounding coarse and wheezing heard. Work of breathing increased. RR is 20-24. Pt reporting chest pain on and off, but denies chest pain currently. VSS on 2L. Oxygen is 95-97 on 2L. EKG ordered. ordered mag level, cough meds, trop, proventil and duoneb. RT was paged and will come do prn albuterol [facility].
--- NOTE | 2022-01-07 16:58 | NUR ---
Shift note: Pt is A&O, pleasant with cares. VSS on 2L O2. Pt uses 2L baseline. Pt reported increased SOB this evening and stated he has had a few boughts of chest pain. EKG done, trop and magnesium ordered. Pt has been coughing up cream colored to green colored sputum, suction set up beside to aid in getting secretions up. Sputum send to lab today and showed early growth of bacteria. Lungs are course and wheezing heard, prn albuterol given by RT. Prednisone PO started today. Pt is COVID + precautions maintianed. IV lasix continued per orders. I spoke with Christa, the pt daughter today, she was concerned that pt does not have enough help at home. Pt is also sick and is unable to provide the amount of care the pt needs. Family is hoping to get home health set up and some other supplies like a nebulizer and wheelchair. I passed the message along to Dr. Norman. Holding d/c until case briefer is able to help with d/c planning.
--- NOTE | 2022-01-07 21:05 | NUR ---
CARE ASSUMPTION: PATIENT WAS RESTING IN BED, SNORING, WHEN THIS RN ENTERED ROOM TO INTRODUCE SELF AND UPDATE WHITEBOARD. PATIENT ROUSED AND WHEN ASKED HOW HE FELT HE REPLIED WITH A CHUCKLE, "YOU CAN PROBABLY TELL HOW I FEEL." PATIENT WAS AUDIBLY WHEEZY, REQUESTED HIS PHONE BE CHARGED, AND NEW H2O. THIS RN TOOK VS AND OFFERED TO BRING ROBITUSSIN WHEN SHE RETURNED, WHICH THE PATIENT STATED "WOULD BE A GOOD IDEA" IT HELPS HIM SLEEP. PATIENT AND RN MADE PLAN TO TAKE ROBITUSSIN Q4 PER PRN EMAR ORDER. LEARNED PATIENT HAS 4 CHILDREN BUT TWO , WHICH PATIENT STATED "HAPPENS TO EVERY FAMILY AND YOU NEVER EXPECT IT."
[2022-01-08 04:25] LABS: International Normalized Ratio 2.77; Prothrombin Time Results 27.2 Sec (9.7-11.5)
[2022-01-08 04:31] LABS: Anion Gap 4 mmol/L (6-16); Blood Urea Nitrogen 23 mg/dL (8-24); Bun/Creatinine Ratio 24.3 (12.0-20.0); CO2, Blood 39 mmol/L (21-32); Calcium, Blood 8.3 mg/dL (8.5-10.1); Chloride, Blood 93 mmol/L (98-108); Creatinine, Blood 0.95 mg/dL (0.60-1.20); Glomerular Filtration Rate >60 (60-); Glucose, Blood 119 mg/dL (70-99); Potassium, Blood 3.6 mmol/L (3.5-5.5); Sodium, Blood 136 mmol/L (136-145)
--- NOTE | 2022-01-08 06:01 | NUR ---
SHIFT SUMMARY: PATIENT MAINTAINED O2 SAT >95% ON 2L NC. MEDICATED PER EMAR WITH ROBITUSSIN PRN Q4 TO HELP PATIENT SLEEP AND MINIMIZE COUGHING. PATIENT USED URINAL AT BEDSIDE T/O NIGHT. PATIENT MAINTAINED SYSTOLIC BP <140, HR 80-90S, AFIB. NO ADVERSE EVENTS THIS SHIFT. WILL CONTINUE TO MONITOR AND REPORT TO ONCOMING RN.
[2022-01-08] MEDS ORDERED: Tessalon200 MG PO (11:52)
[2022-01-08] MEDS ORDERED: ALBU2.5V5 INH (11:52)
[2022-01-08] MEDS ORDERED: GABA300 PO (11:53)
[2022-01-08] MEDS ORDERED: Prednisone20 MG PO (11:54)
[2022-01-08] MEDS ORDERED: IPRAT-ALBUT 0.5-3 ML INH (11:54)
[2022-01-08] MEDS ORDERED: TIOT18 INH (11:55)
--- NOTE | 2022-01-08 13:23 | NUR ---
Shift note: Pt A&O, pleasant with cares. VSS on 2L (which is pt baseline). PRN and scheduled HFA and Nebs per RT. IV lasix continued this AM. Pt daughter Christa called again today for update and said she can provide ride home. Christa also requested hospital bed, wheelchair and nebulizer, Notified of this. Pt reported he already had a wheelchair at home, but prescriptions would be placed for other items. Home health referral sent by piano case maker. Tele: afib 90s. Productive cough, prn robitussin given. Pt up with FWW. PT assessed pt today and recommended HH w/ PT. COVID + precautions maintained. Good appetite.
== END 2022-01-08 13:48 | disposition home health service (06) | DRG 291 ==
LOC: ER 16:41 → PCU 19:11
PROVIDERS: Hospitalist; Physician Assistant; ADMIT Internal Medicine
DX: I11.0 Hypertensive heart disease with heart failure (principal); J96.21 Acute and chronic respiratory failure with hypoxia; I50.33 Acute on chronic diastolic (congestive) heart failure; J44.1 Chronic obstructive pulmonary disease with (acute) exacerbation; I48.21 Permanent atrial fibrillation; I16.1 Hypertensive emergency; R65.10 Systemic inflammatory response syndrome (SIRS) of non-infectious origin without acute organ dysfunction; R20.2 Paresthesia of skin; H54.7 Unspecified visual loss; I25.10 Atherosclerotic heart disease of native coronary artery without angina pectoris; D64.9 Anemia, unspecified; R79.1 Abnormal coagulation profile; Z66 Do not resuscitate; Z98.49 Cataract extraction status, unspecified eye; Z86.16 Personal history of COVID-19; Z53.29 Procedure and treatment not carried out because of patient's decision for other reasons; I69.398 Other sequelae of cerebral infarction; Z85.828 Personal history of other malignant neoplasm of skin; Z90.49 Acquired absence of other specified parts of digestive tract; Z98.890 Other specified postprocedural states; Z88.0 Allergy status to penicillin; Z88.2 Allergy status to sulfonamides; Z91.018 Allergy to other foods; Z79.01 Long term (current) use of anticoagulants; Z79.82 Long term (current) use of aspirin; Z79.899 Other long term (current) drug therapy
CPT/HCPCS: 36415; 71045; 80048; 80053; 82550; 83690; 83735; 83880; 84484; 85025; 85610; 87070; 87205; 93005; 93010; 94640; 94660; 94667; 94762; 96374; 96375; 97110; 97162; 99285-25; A9270; J0456; J0696; J1940; J2930; J7040; J7050; J7512

== ENCOUNTER 2023-03-20 13:25 | Emergency (ER) | payer MEDICARE ==
[~2023-03-20] VITALS: Ht 182.9 cm; Wt 73.0 kg
[~2023-03-20 13:25] MED LIST changes: +ALBU2.5V5 INH; +GABA300 PO; +IPRAT-ALBUT 0.5-3 ML INH; +Prednisone20 MG PO; +Tessalon200 MG PO
[2023-03-20 14:10] LABS: Source, Urine Voided
[2023-03-20 14:25] LABS: Appearance, Urine Clear (Clear); Bilirubin, Urine Neg (Neg); Blood, Urine Neg (Neg); Color, Urine Yellow (P-Yellow); Glucose Qualitative, Urine Neg (Neg); Ketones, Urine Neg (Neg); Leukocyte Esterase, Urine Neg (Neg); Nitrite, Urine Neg (Neg); Protein, Urine Neg (Neg); Specific Gravity, Urine 1.015 (1.003-1.022); Urobilinogen, Urine NORM (Normal)
[2023-03-20 14:33] LABS: BASOPHILS ABSOLUTE AUTO 0.05 K/mm3 (0.00-0.23); BASOPHILS PERCENT AUTO 1 % (0-2); EOSINOPHILS ABSOLUTE AUTO 0.05 K/mm3 (0.00-0.68); EOSINOPHILS PERCENT AUTO 1 % (0-6); Hematocrit 32.9 % (37.0-53.0); Hemoglobin 10.9 g/dL (13.5-17.5); IMMATURE GRAN ABSOLUTE AUTO 0.03 K/mm3 (0.00-0.10); IMMATURE GRAN PERCENT AUTO 1 % (0-1); LYMPHOCYTES ABSOLUTE AUTO 0.46 K/mm3 (0.84-5.20); LYMPHOCYTES PERCENT AUTO 10 % (21-46); MONOCYTES ABSOLUTE AUTO 0.63 K/mm3 (0.16-1.47); MONOCYTES PERCENT AUTO 13 % (4-13); Mean Corpuscular HGB 31.7 pg (26.0-34.0); Mean Corpuscular HGB Conc 33.1 g/dL (31.5-36.5); Mean Corpuscular Volume 96 fL (80-100); NEUTROPHILS ABSOLUTE AUTO 3.58 K/mm3 (1.96-9.15); NEUTROPHILS PERCENT AUTO 75 % (41-73); RDW Coefficient Variation 14.5 % (11.7-14.2); RDW Standard Deviation 50.7 fL (35.1-46.3); Red Blood Cell Count 3.44 M/mm3 (4.30-5.90)
[2023-03-20 14:42] LABS: Albumin, Blood 2.8 g/dL (3.4-5.0); Albumin/Globulin Ratio 0.5 (0.8-1.8); Bilirubin, Total 0.6 mg/dL (0.1-1.0); Creatinine, Blood 1.61 mg/dL (0.60-1.20); Globulin, Blood 5.2 g/dL (2.2-4.0); Potassium, Blood 3.9 mmol/L (3.5-5.5)
[2023-03-20 14:49] LABS: Mean Platelet Volume 10.1 fL (9.1-12.4); Platelet Count 224 K/mm3 (150-400)
[2023-03-20 15:21] LABS: Ethanol (Alcohol), Blood, Med 6 mg/dL
[2023-03-20] MEDS ORDERED: REMERON1510 PO (16:12)
[2023-03-20] MEDS ORDERED: ZOLOFT10013 PO (16:12)
[2023-03-20] MEDS ORDERED: Zestril30 MG PO (16:12)
[2023-03-20 17:00] VITALS: BP 113/63
== END 2023-03-20 17:25 | disposition home or self-care (01) ==
LOC: ER 13:25
PROVIDERS: Emergency Medicine
DX: J44.1 Chronic obstructive pulmonary disease with (acute) exacerbation (principal); R09.02 Hypoxemia; R62.7 Adult failure to thrive; J90 Pleural effusion, not elsewhere classified; R63.0 Anorexia; I50.32 Chronic diastolic (congestive) heart failure; I25.10 Atherosclerotic heart disease of native coronary artery without angina pectoris
CPT/HCPCS: 36415; 71046; 80053; 81003; 83690; 83880; 84484; 85025; 93005; 93010; 99285-25; G0480

== ENCOUNTER → 2023-03-27 | Outpatient (CLI) | payer MEDICARE ==
[~2023-03-27] MED LIST changes: +REMERON1510 PO; +ZOLOFT10013 PO; +Zestril30 MG PO
[2023-03-27 13:55] LABS: International Normalized Ratio 1.74; Prothrombin Time Results 17.7 Sec (9.7-11.5)
== END | disposition home or self-care (01) ==
LOC: LAB SHORT 10:08 → LAB 10:08
PROVIDERS: Family Medicine
DX: Z79.01 Long term (current) use of anticoagulants (principal); Z51.81 Encounter for therapeutic drug level monitoring
CPT/HCPCS: 85610

== ENCOUNTER 2023-10-12 13:10 | Emergency (ER) | payer MEDICARE ==
[~2023-10-12] VITALS: Ht 182.9 cm; Wt 68.0 kg
[2023-10-12 14:23] LABS: Albumin, Blood 3.4 g/dL (3.4-5.0); Albumin/Globulin Ratio 0.6 (0.8-1.8); Bilirubin, Total 0.7 mg/dL (0.1-1.0); Bun/Creatinine Ratio 32.3 (12.0-20.0); Calcium, Blood 10.1 mg/dL (8.5-10.1); Creatinine, Blood 1.33 mg/dL (0.60-1.20); Globulin, Blood 5.9 g/dL (2.2-4.0); Potassium, Blood 4.6 mmol/L (3.5-5.5); Total Protein, Blood 9.3 g/dL (6.4-8.2)
[2023-10-12 14:25] LABS: International Normalized Ratio 0.97; Prothrombin Time Results 10.2 Sec (9.7-11.5)
[2023-10-12 16:07] LABS: Source, Urine Clean Catch
[2023-10-12 16:40] LABS: Appearance, Urine Clear (Clear); Bilirubin, Urine Neg (Neg); Blood, Urine Neg (Neg); Color, Urine Yellow (P-Yellow); Glucose Qualitative, Urine Neg (Neg); Ketones, Urine Neg (Neg); Leukocyte Esterase, Urine Neg (Neg); Nitrite, Urine Neg (Neg); Protein, Urine 1+ (Neg); Urobilinogen, Urine NORM (Normal)
[2023-10-12 16:45] LABS: BASOPHILS ABSOLUTE AUTO 0.02 K/mm3 (0.00-0.23); BASOPHILS PERCENT AUTO 0 % (0-2); EOSINOPHILS ABSOLUTE AUTO 0.01 K/mm3 (0.00-0.68); EOSINOPHILS PERCENT AUTO 0 % (0-6); Hematocrit 33.3 % (37.0-53.0); Hemoglobin 10.9 g/dL (13.5-17.5); IMMATURE GRAN ABSOLUTE AUTO 0.02 K/mm3 (0.00-0.10); IMMATURE GRAN PERCENT AUTO 0 % (0-1); LYMPHOCYTES ABSOLUTE AUTO 0.45 K/mm3 (0.84-5.20); LYMPHOCYTES PERCENT AUTO 6 % (21-46); MONOCYTES ABSOLUTE AUTO 0.69 K/mm3 (0.16-1.47); MONOCYTES PERCENT AUTO 8 % (4-13); Mean Corpuscular HGB 30.7 pg (26.0-34.0); Mean Corpuscular HGB Conc 32.7 g/dL (31.5-36.5); Mean Corpuscular Volume 94 fL (80-100); Mean Platelet Volume 10.3 fL (9.1-12.4); NEUTROPHILS ABSOLUTE AUTO 6.98 K/mm3 (1.96-9.15); NEUTROPHILS PERCENT AUTO 86 % (41-73); Platelet Count 234 K/mm3 (150-400); RDW Coefficient Variation 14.7 % (11.7-14.2); RDW Standard Deviation 50.6 fL (35.1-46.3); Red Blood Cell Count 3.55 M/mm3 (4.30-5.90); White Blood Cell Count 8.17 K/mm3 (4.00-11.30)
[2023-10-12 17:15] VITALS: BP 165/84
== END 2023-10-12 18:25 | disposition home or self-care (01) ==
LOC: ER 13:10
PROVIDERS: Emergency Medicine; Student in an Organized Health Care Education/Training Program
DX: K52.9 Noninfective gastroenteritis and colitis, unspecified (principal); I13.0 Hypertensive heart and chronic kidney disease with heart failure and stage 1 through stage 4 chronic kidney disease, or unspecified chronic kidney disease; N18.9 Chronic kidney disease, unspecified; I50.32 Chronic diastolic (congestive) heart failure; I48.21 Permanent atrial fibrillation; J44.9 Chronic obstructive pulmonary disease, unspecified; I25.10 Atherosclerotic heart disease of native coronary artery without angina pectoris; I69.954 Hemiplegia and hemiparesis following unspecified cerebrovascular disease affecting left non-dominant side; I69.998 Other sequelae following unspecified cerebrovascular disease; R26.89 Other abnormalities of gait and mobility; Z79.01 Long term (current) use of anticoagulants; Z99.81 Dependence on supplemental oxygen; Z87.891 Personal history of nicotine dependence
CPT/HCPCS: 71046; 74177; 80053; 83690; 85025; 85610; 93005; 93010; 96360-59; 99284-25; J7120; Q9967

== ENCOUNTER 2023-10-17 11:27 | Emergency (ER) | payer MEDICARE ==
[~2023-10-17] VITALS: Ht 182.9 cm; Wt 68.0 kg
[2023-10-17 11:56] LABS: BASOPHILS ABSOLUTE AUTO 0.04 K/mm3 (0.00-0.23); BASOPHILS PERCENT AUTO 1 % (0-2); EOSINOPHILS ABSOLUTE AUTO 0.03 K/mm3 (0.00-0.68); EOSINOPHILS PERCENT AUTO 0 % (0-6); Hematocrit 34.4 % (37.0-53.0); Hemoglobin 11.2 g/dL (13.5-17.5); IMMATURE GRAN ABSOLUTE AUTO 0.02 K/mm3 (0.00-0.10); IMMATURE GRAN PERCENT AUTO 0 % (0-1); LYMPHOCYTES ABSOLUTE AUTO 0.42 K/mm3 (0.84-5.20); LYMPHOCYTES PERCENT AUTO 6 % (21-46); MONOCYTES ABSOLUTE AUTO 0.68 K/mm3 (0.16-1.47); MONOCYTES PERCENT AUTO 9 % (4-13); Mean Corpuscular HGB 30.9 pg (26.0-34.0); Mean Corpuscular HGB Conc 32.6 g/dL (31.5-36.5); Mean Corpuscular Volume 95 fL (80-100); Mean Platelet Volume 10.1 fL (9.1-12.4); NEUTROPHILS ABSOLUTE AUTO 6.17 K/mm3 (1.96-9.15); NEUTROPHILS PERCENT AUTO 84 % (41-73); Platelet Count 249 K/mm3 (150-400); RDW Coefficient Variation 14.8 % (11.7-14.2); RDW Standard Deviation 51.4 fL (35.1-46.3); Red Blood Cell Count 3.62 M/mm3 (4.30-5.90); White Blood Cell Count 7.36 K/mm3 (4.00-11.30)
[2023-10-17 12:22] LABS: BASOPHILS ABSOLUTE MAN 0.07 K/mm3 (0.00-0.23); BASOPHILS PERCENT MAN 1 % (0-2); EOSINOPHILS PERCENT MAN 0 % (0-6); LYMPHOCYTES ABSOLUTE MAN 0.22 K/mm3 (0.84-5.20); LYMPHOCYTES PERCENT MAN 3 % (21-46); MONOCYTES ABSOLUTE MAN 0.36 K/mm3 (0.16-1.47); MONOCYTES PERCENT MAN 5 % (4-13); NEUTROPHILS ABSOLUTE MAN 6.69 K/mm3 (1.96-9.15); SEG NEUTROPHILS PERCENT MAN 91 % (41-73); TOTAL CELLS COUNTED 100
[2023-10-17 12:32] LABS: Albumin, Blood 2.7 g/dL (3.4-5.0); Albumin/Globulin Ratio 0.6 (0.8-1.8); Bilirubin, Total 0.6 mg/dL (0.1-1.0); Bun/Creatinine Ratio 22.4 (12.0-20.0); Calcium, Blood 8.9 mg/dL (8.5-10.1); Creatinine, Blood 1.16 mg/dL (0.60-1.20); Globulin, Blood 4.9 g/dL (2.2-4.0); Potassium, Blood 3.8 mmol/L (3.5-5.5); Total Protein, Blood 7.6 g/dL (6.4-8.2)
[2023-10-17 12:57] LABS: International Normalized Ratio 1.45; Prothrombin Time Results 14.9 Sec (9.7-11.5)
[2023-10-17] MEDS ORDERED: BISA10S PR (15:09)
[2023-10-17] MEDS ORDERED: MIRALAX17 GM PO (15:09)
[2023-10-17] MEDS ORDERED: HYDACE25S PR (15:09)
[2023-10-17 18:25] VITALS: BP 137/90
== END 2023-10-17 18:42 | disposition home or self-care (01) ==
LOC: ER 11:27
PROVIDERS: Student in an Organized Health Care Education/Training Program
DX: K56.41 Fecal impaction (principal); K64.8 Other hemorrhoids; Z88.0 Allergy status to penicillin; Z88.2 Allergy status to sulfonamides; Z91.018 Allergy to other foods; Z79.899 Other long term (current) drug therapy; Z79.01 Long term (current) use of anticoagulants; Z87.891 Personal history of nicotine dependence; I11.0 Hypertensive heart disease with heart failure; I50.32 Chronic diastolic (congestive) heart failure; J44.9 Chronic obstructive pulmonary disease, unspecified; I25.10 Atherosclerotic heart disease of native coronary artery without angina pectoris
CPT/HCPCS: 80053; 85025; 85610; 96361; 96374; 96376; 99284-25; A9270; J3010; J7030